=== PATIENT | female | born 1955 | race Caucasian/White ===

== ENCOUNTER 2020-10-02 13:02 | Emergency (ER) | payer BC, SELFPAY ==
[2020-10-02 13:05] VITALS: BP 142/75; PULSE 73; RESP 18; TEMP 37.1; O2SAT 98
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
[2020-10-02 13:35] VITALS: BP 130/84
== END 2020-10-02 13:35 | disposition home or self-care (01) ==
PROVIDERS: Emergency Provider Nurse Practitioner Family; PCP Internal Medicine Infectious Disease
DX: H60.92 Unspecified otitis externa, left ear (principal); F41.9 Anxiety disorder, unspecified; I10 Essential (primary) hypertension; E03.9 Hypothyroidism, unspecified; E66.9 Obesity, unspecified; Z68.32 Body mass index [BMI] 32.0-32.9, adult
CPT/HCPCS: 99213; G0463

== ENCOUNTER 2024-12-19 17:42 | Emergency (ER) | payer MEDICARE, OTHER, SELFPAY ==
--- OUTSIDE RECORDS SUMMARY | 2024-12-19 17:44 | XMS_ITS | Encounter Summary ---
Author Organization [facility] Address [address] [place] [address] Phone Care Team Providers Care Automotive Heavy Mechanic Name Role Phone Richard Padilla MD Primary Care Provider [phone] Alannah Pascual MD Unavailable Elma Khan DO Unavailable [phone] Dorota Luz MA Unavailable Encounter Details Date Type Department Care Team (Late st Contact Info) Description 02/19/2017 Orders Only [facility] [address] [place] [address] Richard Padilla MD [address] [address] Social History Tobacco Use Types Packs/Day Years Used Date Smoking Tobacco: Never Smokeless Tobacco: Never Alcohol Use Standard Drinks/Week Comments No 0 (1 standard drink = 0.6 oz pur e alcohol) Comments Unknown Sex and Gender Information Value Date Recorded Sex Assigned at Not on file Legal Sex Female 11:55 PM OFFSET PRESS OPERATOR APPRENTICE Gender Identity Not on file Sexual Orientation Not on file documented as of this encounter Plan of Treatment Not on file documented as of this encounter Procedures Procedure Name Priority Date/Time Associated Diagnosis Comments CARDIOLOGY DOCUMENT SCAN 02/19/2017 11:36 AM OFFSET PRESS OPERATOR APPRENTICE documented in this encounter Results * SCAN - CARDIOLOGY (02/19/2017 11:36 AM OFFSET PRESS OPERATOR APPRENTICE) Anatomical Region Laterality Modality Other Richard Padilla MD CV CARDIAC SERVICES PROCEDURE S Final Result documented in this encounter Visit Diagnoses Not on filedocumented in this encounter Care Teams Automotive Heavy Mechanic Relationship Specialty Start Date End Date Richard Padilla MD [address] [place] [address] PCP - General Infectious Diseases 02/19/17 Alannah Pascual MD [address] [place] [address] Consulting Physician Cardiovascular Disease 02/19/17 Elma Khan DO [address] [place] [address] Consulting Physician Otolaryngology 02/27/19 Dorota Luz MA [address] [place] [address] ACO Care Manufacturing Manager 09/01/24 09/01/24 documented as of this encounter
--- OUTSIDE RECORDS SUMMARY | 2024-12-19 17:44 | XMS_ITS | Clinical Summary ---
Author Organization [facility] Address [address] [place] [address] Phone Care Team Providers Care Obiee Architect Name Role Phone Richard Padilla MD Primary Care Provider [phone] Allergies No known active allergies Medications aspirin EC 81 MG Tablet Delayed Response Take by mouth. Active triamcinolone (KENALOG) 0.1 % Cream Apply. Active losartan potassium-hydroc hlorothiazide (HYZAAR) 100-25 MG Tablet Take by mouth. Active carvedilol (COREG) 6.25 MG Tablet 04/26/2015 Active ALPRAZolam (XANAX) 0.25 MG Tablet Take 1 Tab by mouth 3 times daily as needed. 60 Tab 0 10/01/2015 Active levothyroxine (SYNTHROID) 50 MCG Tablet Take 1 Tab by mouth daily. 90 Tab 0 05/28/2016 Active Active Problems Problem Noted Date Diagnosed Date Breast cancer screening 02/06/2016 Acquired hypothyroidism 05/25/2015 ZAK (generalized anxiety disorder) RLS (restless legs syndrome) Cervical osteoarthritis Hypertension [facility] (myocardial infarction) Overview (03/12/2015): 09/2012 Enlarged heart chamber Resolved Problems Problem Noted Date Diagnosed Date Resolved Date Anxiety 05/21/2015 Family History Medical History Relation Name Comments Cancer Father Diabetes Father Breast Cancer Maternal Aunt 1 Breast Cancer Maternal Aunt 2 Relation Name Status Comments Father Alive Maternal Aunt 1 Maternal Aunt 2 Mother Social History Tobacco Use Types Packs/Day Years Used Date Smoking Tobacco: Never Smokeless Tobacco: Never Alcohol Use Standard Drinks/Week Comments No 0 (1 standard drink = 0.6 oz pur e alcohol) Sexually Active Control Partners Comments Not Currently Comments No Sex and Gender Information Value Date Recorded Sex Assigned at Not on file Legal Sex Female 10:57 PM CDT Gender Identity Not on file Sexual Orientation Not on file Last Filed Vital Signs Vital Sign Reading Time Taken Comments Blood Pressure 118/80 02/06/2016 9:18 AM CREATIVE SERVICES DIRECTOR Pulse 74 02/06/2016 9:18 AM CREATIVE SERVICES DIRECTOR Temperature 36.6 C (97.8 F) 02/06/2016 9:18 AM CREATIVE SERVICES DIRECTOR Respiratory Rate 18 02/06/2016 9:18 AM CREATIVE SERVICES DIRECTOR Oxygen Saturation 99% 02/06/2016 9:18 AM CREATIVE SERVICES DIRECTOR Inhaled Oxygen Concentration - - Weight 88 kg (194 lb) 02/06/2016 9:18 AM CREATIVE SERVICES DIRECTOR Height 165.1 cm (5' 5) 02/06/2016 9:18 AM CREATIVE SERVICES DIRECTOR Body Mass Index 32.28 02/06/2016 9:18 AM CREATIVE SERVICES DIRECTOR Plan of Treatment Health Maintenance Due Date Last Done Comments Hepatitis C Virus (HCV) Screening 1955 TdaP Immunization 1955 Cologuard 01/29/2001 Colonoscopy 01/29/2001 Colorectal Cancer Screening 01/29/2001 Immunochemical Fecal Occult Blood 01/29/2001 Pneumococcal Immunization (5 0+ years) (1 of 1 - PCV) 01/29/2006 Zoster Immunization (1 of 2) 01/29/2006 Influenza Immunization (#1) 2024 SARS-COV-2 Immunization (2 - season) 2024 06/28/2020 Respiratory Syncytial Virus (RSV) Immunization (Adult) (1 - 1-dose 75+ series) 01/29/2031 Mammogram Discontinued 02/22/2016, 02/07/2015 Hepatitis B Immunization Aged Out No longer eligible based on patient's age to complete this topic Human Papillomavirus (HPV) Immunization Aged Out No longer eligible based on patient's age to complete this topic Meningococcal Immunization (ACWY) Aged Out No longer eligible based on patient's age to complete this topic Rotavirus Immunization Aged Out No lo nger eligible based on patient's age to complete this topic Procedures Procedure Name Priority Date/Time Associated Diagnosis Comments ELDON SCREENING BILATERAL DIGITAL W CAD Routine 02/22/2016 9:01 AM CREATIVE SERVICES DIRECTOR Breast cancer screening from Last 3 Months or Most Recently Relevant to Health Maintenance Results * ELDON SCREENING BILATERAL DIGITAL W CAD (02/22/2016 9:01 AM CREATIVE SERVICES DIRECTOR) Anatomical Region Laterality Modality breast Bilateral Mammography 02/22/2016 8:43 AM CREATIVE SERVICES DIRECTOR Narrative 02/23/2016 11:58 AM CREATIVE SERVICES DIRECTOR - ELDON SCREENING BILATERAL DIGITAL W CAD BILATERAL DIGITAL SCREENING MAMMOGRAM WITH CAD WITH MEDIOLATERAL OBLIQUE CRANIOCAUDAL: 02/22/2016 The study was acquired using digital technology and interpreted from soft copy. Current study was also evaluated with ICAD version 7.2. CLINICAL: Routine screening. Patient has no complaints. No personal history of cancer. Two maternal aunt's had breast cancer. COMPARISONS: Comparison is made to exams dated: 02/07/2015, 10/14/2013, and 10/08/2010 [facility]. BREAST TISSUE:There are scattered fibroglandular densities in both breasts. FINDINGS: No significant masses, calcifications, or other findings are seen in either breast. There has been no significant interval change. IMPRESSION: BI-RAD 1 NEGATIVE There is no mammographic evidence of malignancy. A 1 year screening mammogram is recommended. The patient has been or will be contacted. The patient will be entered into a reminder system with a target due date of 1 year for her next screening exam. Electronically signed by: Elma cr/daniela:02/22/2016 10:14:20 [employer] Racker: Melinda Vasquez(Natasha), [facility] letter sent: Normal Exam Reading location: [facility] BI-RADS: 1 Negative Procedure Note Elma Dumont MD - 02/23/2016 - ELDON SCREENING BILATERAL DIGITAL W CAD BILATERAL DIGITAL SCREENING MAMMOGRAM WITH CAD WITH MEDIOLATERAL OBLIQUE CRANIOCAUDAL: 02/22/2016 The study was acquired using digital technology and interpreted from soft copy. Current study was also evaluated with ICAD version 7.2. CLINICAL: Routine screening. Patient has no complaints. No personal history of cancer. Two maternal aunt's had breast cancer. COMPARISONS: Comparison is made to exams dated: 02/07/2015, 10/14/2013, and 10/08/2010 [facility]. BREAST TISSUE:There are scattered fibroglandular densities in both breasts. FINDINGS: No significant masses, calcifications, or other findings are seen in either breast. There has been no significant interval change. IMPRESSION: BI-RAD 1 NEGATIVE There is no mammographic evidence of malignancy. A 1 year screening mammogram is recommended. The patient has been or will be contacted. The patient will be entered into a reminder system with a target due date of 1 year for her next screening exam. Electronically signed by: Elma cr/hectorrad:02/22/2016 10:14:20 [employer] Racker: Melinda Vasquez(R), [facility] letter sent: Normal Exam Reading location: [facility] BI-RADS: 1 Negative Tom Coleman MD IMG MAMMO ORDERABLES Final Re sult from Last 3 Months or Most Recently Relevant to [place] [address] [facility] Care Teams Obiee Architect Relationship Specialty Start Date End Date Richard Padilla MD [employer], [address] [place] [address] PCP - General Infectious Disease 08/19/18
--- OUTSIDE RECORDS SUMMARY | 2024-12-19 17:44 | XMS_ITS | Clinical Summary ---
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 9.2 8.5 - 10.3 mg/dL C[facility]ER [facility] Comment:Testing performed by : [address] [address] Bilirubin, total 0.7 0.1 - 1.2 mg/dL [facility] Comment:Testing performed by : [facility], [address] [place] [address]., [id number] Protein, pl 7.4 6.5 - 8.5 g/dL [facility] Comment:Testing performed by : [facility], [address] [place] [address]., [id number] Albumin 4.3 3.5 - 5.0 g/dL [facility] CH Comment:Testing performed by : [address], [address] Alk phos 74 40 - 130 Units/L [facility] Comment:Testing performed by : [facility], [address] [place] [address]., [address] ALT 17 7 - 45 Units/L CERNER CH Comment:Testing performed by : [address] [address] AST 20 10 - 45 Units/L [facility]ER CH Comment:Testing performed by : [address] [address] Blood 11/07/2024 10:0 2 AM CDT 11/07/2024 1:28 PM CDT us Esperanza Pelaez MD LAB BLOOD ORDERABLES Final Re sult [address] Department [place] [address] * Screening Mammogram Bilateral W Matt (01/05/2024 9:50 AM CDT) Anatomical Region Laterality Modality Breast Bilateral Mammography 01/05/2024 11:3 2 AM CDT Impressions 01/05/2024 11:32 AM CDT There is no mammographic evidence of malignancy. A 1 year screening mammogram is recommended. BI-RADS: 1 - Negative. The patient has been or will be contacted. The patient will be entered into a reminder system with a target due date of 1 year for her next mammogram. Electronically signed by: Rick Au M.D. Narrative 01/05/2024 11:32 AM CDT EXAMINATION: SCREENING MAMMOGRAM BILATERAL W MATT ORDERING HEALTHCARE PROVIDER: ESPERANZA PELAEZ HISTORY: Routine screening mammography. COMPARISON: 12/30/2022, 12/19/2022, 02/22/2016 TECHNIQUE: CC and MLO views of the bilateral breasts were obtained with digital technique using breast tomosynthesis with C view. Computer aided detection was utilized. FINDINGS: DENSITY: There are scattered areas of fibroglandular density. BREASTS: There are no suspicious masses, suspicious calcifications, or other suspicious findings in either breast. There has been no suspicious interval change. 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 REFERENCE: Bone mineral density: Normal (T-score above or = -1.0) Low bone mass (T-score between -1.0 and -2.5) replaces the previously used term osteopenia Osteoporosis (T-score = or below -2.5) Medical evaluation for secondary causes of low bone mineral density may be appropriate. FRAX is a World Health Organization validated fracture risk assessment tool that calculates a person's 10 year probability of a major osteoporosis related fracture and hip fracture. According to the National Osteoporosis Foundation guidelines, postmenopausal women and men age 50 or older with low bone mass and a 10 year probability of a major osteoporosis related fracture = or greater than 20% or a 10 year probability of a hip fracture = or greater than 3% should be considered for treatment. For further information, including treatment recommendations, please refer to the 2019 ISCD Official Positions (http://www.iscd.org) and the NOF's Clinician's Guide to Prevention and Treatment of Osteoporosis (http://www.nof.org/professionals/clinical-guidelines) THIS IS AN ELECTRONICALLY VERIFIED FINAL REPORT 12/19/2022 9:06 PM - Electronically signed by Tom Faulkner M.D. 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 REFERENCE: Bone mineral density: Normal (T-score above or = -1.0) Low bone mass (T-score between -1.0 and -2.5) replaces thepreviously used term osteopenia Osteoporosis (T-score = or below -2.5) Medical evaluation for secondary causes of low bone mineral density may be appropriate. FRAX is a World Health Organization validated fracture risk assessmenttool that calculates a person's 10 year probability of a major osteoporosisrelated fracture and hip fracture. According to the National OsteoporosisFoundation guidelines, postmenopausal women and men age 50 or older with low bonemass and a 10 year probability of a major osteoporosis related fracture = or greater than 20% or a 10 year probability of a hip fracture = or greaterthan 3% should be considered for treatment. For further information, including treatment recommendations, please referto the 2019 ISCD Official Positions (http://www.iscd.org) and the NOF's Clinician's Guide to Prevention and Treatment of Osteoporosis (http://www.nof.org/professionals/clinical-guidelines) THIS IS AN ELECTRONICALLY VERIFIED FINAL REPORT 12/19/2022 9:06 PM - Electronically signed by Tom Faulkner M.D. MF: RA Report ID: [id number] Reading Location: [place] [address] Esperanza Pelaez MD IM DXA PROCEDURES Final Resu lt * Hepatitis C antibody (07/24/2020 8:24 AM CDT) Pathologist [facility] Hep C Ab Nonreactive Nonreactive [facility] Comment: Interpretive Data Nonreactive: Antibodies to HCV not detected. Does NOT exclude the possibility of recent exposure to HCV. Equivocal: Equivocal for HCV antibodies. Supplemental molecular testing will be automatically performed to determine infection status in accordance with current CDC screening recommendations. Reactive: Positive for HCV antibodies. This may represent current or past HCV infection. Supplemental molecular testing will be automatically performed to determine current infection status in accordance with current CDC screening recommendations. Interpretive data was last revised on 2019. Blood specimen (specimen) 07/24/2020 8:24 AM CDT 07/24/2020 1:52 PM CDT Esperanza Pelaez MD LAB MICROBIOLOGY - GENERAL OR DERABLES Final Result Performing Organization Address City/[place] Number [place] [address] [address] Department [place] [address] from Last 3 Months or Most Recently Relevant to Health Maintenance Insurance MEDICARE [facility] [place] [address] [facility] [address] [address] Advance Directives For more information, please contact: [phone] * Full Code (Latest Code Status on File) Date Activated Date Inactivated Comments 09/12/2020 3:49 PM 09/13/2020 4:23 PM 

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
[2024-12-19 18:00] VITALS: BP 158/78; PULSE 74; RESP 16; TEMP 36.2; O2SAT 97
== END 2024-12-19 18:28 | disposition home or self-care (01) ==
PROVIDERS: Emergency Provider Nurse Practitioner; PCP Internal Medicine Infectious Disease
DX: H60.91 Unspecified otitis externa, right ear (principal); H61.21 Impacted cerumen, right ear; I10 Essential (primary) hypertension; E03.9 Hypothyroidism, unspecified; E66.9 Obesity, unspecified; F41.9 Anxiety disorder, unspecified; Z79.82 Long term (current) use of aspirin
CPT/HCPCS: 69209; 99213; G0463